=== PATIENT | female | born 1960 | race Caucasian/White ===

== ENCOUNTER 2017-04-23 05:50 | Day surgery (SDC) | payer OTHER | END 2017-04-23 10:45 | disposition home or self-care (01) | LOC: AMB-ENDOS 05:50 | DX: K21.9 Gastro-esophageal reflux disease without esophagitis (principal); K44.9 Diaphragmatic hernia without obstruction or gangrene ==

== ENCOUNTER 2019-04-20 07:45 | Day surgery (SDC) | payer OTHER ==
[~2019-04-20 07:45] MED LIST: SYNTHROID125 MCG PO
[2019-04-20] MEDS ORDERED: ULTRACET PO (13:01)
[2019-04-20] MEDS ORDERED: POLY119PG PO (13:02)
[2019-04-20] MEDS ORDERED: SURFAK240 M1 PO (13:02)
== END 2019-04-20 16:15 | disposition home or self-care (01) ==
LOC: CIR.AMB 07:45
DX: K80.10 Calculus of gallbladder with chronic cholecystitis without obstruction (principal)

== ENCOUNTER 2020-08-03 05:50 | Day surgery (SDC) | payer OTHER ==
[~2020-08-03 05:50] MED LIST changes: +POLY119PG PO; +SURFAK240 M1 PO; +ULTRACET PO; +ZOCOR40 MG PO
== END 2020-08-03 20:00 | disposition home or self-care (01) ==
LOC: CIR.AMB 05:50
PROVIDERS: ATTEND Plastic Surgery
DX: N62 Hypertrophy of breast (principal); Z20.822 Contact with and (suspected) exposure to COVID-19